=== PATIENT | male | born 1990 | race Caucasian/White ===

== ENCOUNTER 2021-11-14 18:45 | Inpatient (IN) | payer OTHER ==
[~2021-11-14] VITALS: Ht 172.7 cm; Wt 117.5 kg
[2021-11-14] MEDS ORDERED: NALOXONE HCL 1 MG/ML 2ML VIAL ONE (18:59)
[2021-11-14] MEDS ORDERED: NALOXONE HCL 0.4 MG/ML 1ML VIAL IV ONE (19:00)
[2021-11-14] MEDS ORDERED: NALOXONE HCL 1 MG/ML 2ML VIAL IV ONE (19:00)
[2021-11-14 19:15] LABS: BASOPHILS % 0.4 % (0.0-2.0); EOSINOPHILS % 0.3 % (0.0-5.0); HEMATOCRIT. 42.6 % (42.0-52.0); HEMOGLOBIN. 13.8 g/dL (14.0-18.0); LYMPHOCYTES % 11.4 % (20.0-50.0); MEAN CORPUSCULAR HEMOGLOBIN 28.9 pg (28.0-32.0); MEAN CORPUSCULAR VOLUME 89.7 fL (80.0-94.0); MEAN PLATELET VOLUME 7.8 fl (7.4-10.4); MONOCYTES % 6.2 % (2.0-8.0); NEUTROPHILS % 81.7 % (40.0-76.0); PLATELET 412 x1000/uL (130-400); RED BLOOD CELL COUNT 4.76 mill/uL (4.7-6.1); RED CELL DISTRIBUTION WIDTH 14.2 % (11.6-14.6)
[2021-11-14] MEDS ORDERED: WATER IV PRN (19:15)
[2021-11-14] MEDS ORDERED: NALOXONE IV PRN (19:15)
[2021-11-14] MEDS ORDERED: DEXT 5% IV PRN (19:15)
[2021-11-14 19:25] LABS: CHLORIDE 102 mEq/L (98-107)
[2021-11-14 19:35] LABS: ETHANOL BLOOD < 10 mg/dL
[2021-11-14] MEDS ORDERED: MIDAZOLAM HCL 100 MG in DEXT 5% WATER 80 ML IV PRN (19:45)
[2021-11-14] MEDS ORDERED: MIDAZOLAM HCL 100 MG in SODIUM CHLORIDE 0.9% 80 ML IV PRN (19:45)
[2021-11-14] MEDS ORDERED: MIDAZOLAM 100MG/100ML PMX 100 ML IV PRN (19:45)
[2021-11-14] MEDS ORDERED: FENTANYL 2500MCG/250ML PMX 250 ML IV ONE (20:00)
[2021-11-14 20:21] LABS: CLARITY URINE CLEAR (CLEAR); COLOR URINE YELLOW (YELLOW); KETONES URINE NEGATIVE (NEGATIVE); LEUKOCYTE ESTERASE URINE NEGATIVE (NEGATIVE); NITRITE URINE NEGATIVE (NEGATIVE); OCCULT BLOOD URINE TRACE (NEGATIVE); PROTEIN URINE 1+ (NEGATIVE); SPECIFIC GRAVITY URINE 1.016 (1.005-1.030); UROBILINOGEN URINE 0.2 E.U./dL (0.2-1.0)
[2021-11-14 20:30] LABS: *AMPHETAMINES SCREEN URINE NEGATIVE (NEGATIVE); *BARBITURATES SCREEN URINE NEGATIVE (NEGATIVE); *BENZODIAZEPINES SCREEN URINE PRESUMTIVE POSITIVE (NEGATIVE); *COCAINE SCREEN URINE NEGATIVE (NEGATIVE); CANNABINOID URINE SCREEN PRESUMTIVE POSITIVE (NEGATIVE); METHADONE URINE SCREEN NEGATIVE (NEGATIVE); OPIATES URINE SCREEN PRESUMTIVE POSITIVE (NEGATIVE); PHENCYCLIDINE URINE SCREEN NEGATIVE (NEGATIVE)
[2021-11-14] MEDS ORDERED: PROPOFOL 10MG/ML 100ML 100 ML IV PRN (20:30)
[2021-11-14 21:02] LABS: BG BASE EXCESS -3.1 mmol/L (-2.0-2.0); BG CARBOXYHEMOGLOBIN 0.2 % (0.5-1.5); BG FRACTION INSPIRED OXYGEN 100; BG HCO3 ACT 23.5 mmol/L (22.0-26.0); BG METHEMOGLOBIN 0.6 % (0.0-1.5); BG OXYHEMOGLOBIN 94.2 % (94.0-97.0); BG PH 7.308 (7.350-7.450); BG PO2 80.7 mmHg (75.0-100.0); BG SAMPLE SITE RIGHT RADIAL; BG TOTAL HEMOGLOBIN 14.9 g/dL (12.0-18.0); BG VENT MODE VENT - AC
[2021-11-14] MEDS ORDERED: ASPIRIN 300MG SUPP PR NR (21:30)
[2021-11-15] VITALS (73 sets, daily range): BP systolic 113–151; BP diastolic 56–95
[2021-11-15] MEDS ORDERED: FENTANYL 2500MCG/250ML PMX 250 ML IV PRN (05:15)
[2021-11-15] MEDS: PROPOFOL 10MG/ML 100ML 100 ML IV PRN ×6 (07:01→23:46)
[2021-11-15] MEDS: PANTOPRAZOLE SODIUM 40 MG/VIAL IV SCH (08:46)
[2021-11-15 09:18] LABS: BG BASE EXCESS -1.1 mmol/L (-2.0-2.0); BG CARBOXYHEMOGLOBIN 0.6 % (0.5-1.5); BG DEOXYHEMOGLOBIN 3.5 % (0.0-5.0); BG FRACTION INSPIRED OXYGEN 90; BG HCO3 ACT 24.2 mmol/L (22.0-26.0); BG METHEMOGLOBIN 0.4 % (0.0-1.5); BG OXYGEN SATURATION 96.5 % (92.0-98.5); BG OXYHEMOGLOBIN 95.5 % (94.0-97.0); BG PCO2 42.6 mmHg (35.0-45.0); BG PH 7.373 (7.350-7.450); BG PO2 82.7 mmHg (75.0-100.0); BG SAMPLE SITE RIGHT RADIAL; BG TOTAL HEMOGLOBIN 14.2 g/dL (12.0-18.0); BG VENT MODE VENT - AC
[2021-11-15] MEDS: PIPERACILLIN/TAZOBACTAM 3.375 G in DEXTROSE 5% WATER 50 ML IV SCH ×3 (09:46→21:27)
[2021-11-15] MEDS ORDERED: ONDANSETRON HCL 4MG/2ML INJ IV PRN (10:30)
[2021-11-15 10:52] LABS: CHLORIDE 105 mEq/L (98-107)
[2021-11-15 10:57] LABS: BASOPHILS % 0.2 % (0.0-2.0); HEMATOCRIT. 38.7 % (42.0-52.0); LYMPHOCYTES % 11.7 % (20.0-50.0); MEAN CORPUSCULAR VOLUME 86.7 fL (80.0-94.0); MONOCYTES % 5.4 % (2.0-8.0); NEUTROPHILS % 82.7 % (40.0-76.0); PLATELET 311 x1000/uL (130-400); RED BLOOD CELL COUNT 4.46 mill/uL (4.7-6.1); RED CELL DISTRIBUTION WIDTH 14.4 % (11.6-14.6)
[2021-11-15 16:24] LABS: CREATINE KINASE MB FRACTION 14.6 ng/mL (0.5-3.6)
[2021-11-15] MEDS: ENOXAPARIN 40MG/0.4ML SYR SUBCUT SCH (17:18)
[2021-11-15] MEDS: SODIUM CHLORIDE 0.9% 1,000 ML IV SCH (17:30)
[2021-11-15] MEDS: ACETAMINOPHEN 325MG TABLET PO PRN (19:39)
[2021-11-16] VITALS (73 sets, daily range): BP systolic 116–161; BP diastolic 50–98
[2021-11-16] MEDS: SODIUM CHLORIDE 0.9% 1,000 ML IV SCH ×4 (01:06→18:07)
[2021-11-16] MEDS: PROPOFOL 10MG/ML 100ML 100 ML IV PRN ×9 (02:45→22:21)
[2021-11-16] MEDS: PIPERACILLIN/TAZOBACTAM 3.375 G in DEXTROSE 5% WATER 50 ML IV SCH ×3 (05:02→21:00)
[2021-11-16] MEDS: ENOXAPARIN 40MG/0.4ML SYR SUBCUT SCH (05:03)
[2021-11-16 05:42] LABS: INR 1.1; PROTHROMBIN TIME 11.4 sec (9.6-11.0)
[2021-11-16 06:02] LABS: CHLORIDE 103 mEq/L (98-107)
[2021-11-16 06:19] LABS: BASOPHILS % 0.2 % (0.0-2.0); HEMATOCRIT. 39.7 % (42.0-52.0); LYMPHOCYTES % 12.1 % (20.0-50.0); MEAN CORPUSCULAR HEMOGLOBIN 28.9 pg (28.0-32.0); MEAN PLATELET VOLUME 8.4 fl (7.4-10.4); MONOCYTES % 7.5 % (2.0-8.0); NEUTROPHILS % 80.2 % (40.0-76.0); PLATELET 283 x1000/uL (130-400); RED BLOOD CELL COUNT 4.51 mill/uL (4.7-6.1); RED CELL DISTRIBUTION WIDTH 14.2 % (11.6-14.6)
[2021-11-16 06:40] LABS: CREATINE KINASE 8320 IU/L (39-308)
[2021-11-16 08:54] LABS: BG CARBOXYHEMOGLOBIN 0.2 % (0.5-1.5); BG DEOXYHEMOGLOBIN 4.9 % (0.0-5.0); BG FRACTION INSPIRED OXYGEN 90; BG METHEMOGLOBIN 0.4 % (0.0-1.5); BG OXYGEN SATURATION 95.1 % (92.0-98.5); BG OXYHEMOGLOBIN 94.5 % (94.0-97.0); BG PCO2 43.7 mmHg (35.0-45.0); BG PH 7.409 (7.350-7.450); BG PO2 74.9 mmHg (75.0-100.0); BG SAMPLE SITE RIGHT RADIAL; BG TOTAL HEMOGLOBIN 13.8 g/dL (12.0-18.0); BG VENT MODE VENT - AC
[2021-11-16] MEDS: PANTOPRAZOLE SODIUM 40 MG/VIAL IV SCH (08:56)
[2021-11-16] MEDS ORDERED: IPRATROPIUM/ALBUTEROL 0.5-3(2.5)MG/3ML NEB HHN PRN (09:15)
[2021-11-16 12:54] LABS: HEPATITIS B SURFACE ANTIGEN NEGATIVE
[2021-11-16] MEDS: VANCOMYCIN 1,500 MG in DEXT 5% WATER 250 ML IV SCH ×2 (13:04→18:39)
[2021-11-16] MEDS: IPRATROPIUM/ALBUTEROL 0.5-3(2.5)MG/3ML NEB HHN SCH ×2 (14:25→20:23)
[2021-11-16] MEDS: ENOXAPARIN 30MG/0.3ML SYR SUBCUT SCH (20:46)
[2021-11-16] MEDS: MIDAZOLAM HCL 100 MG in SODIUM CHLORIDE 0.9% 80 ML IV PRN (21:28)
[2021-11-16] MEDS: ACETAMINOPHEN 325MG TABLET PO PRN (22:00)
[2021-11-17] VITALS (48 sets, daily range): BP systolic 101–162; BP diastolic 51–105
[2021-11-17] MEDS: SODIUM CHLORIDE 0.9% 1,000 ML IV SCH ×5 (00:09→21:35)
[2021-11-17] MEDS: VANCOMYCIN 1,500 MG in DEXT 5% WATER 250 ML IV SCH ×2 (01:01→10:10)
[2021-11-17] MEDS: PROPOFOL 10MG/ML 100ML 100 ML IV PRN ×7 (01:16→22:04)
[2021-11-17] MEDS: IPRATROPIUM/ALBUTEROL 0.5-3(2.5)MG/3ML NEB HHN SCH ×3 (01:40→20:39)
[2021-11-17] MEDS: MIDAZOLAM HCL 100 MG in SODIUM CHLORIDE 0.9% 80 ML IV PRN (05:10)
[2021-11-17] MEDS: PIPERACILLIN/TAZOBACTAM 3.375 G in DEXTROSE 5% WATER 50 ML IV SCH ×3 (05:10→21:44)
[2021-11-17 06:06] LABS: BASOPHILS % 0.3 % (0.0-2.0); HEMATOCRIT. 36.1 % (42.0-52.0); HEMOGLOBIN. 12.3 g/dL (14.0-18.0); LYMPHOCYTES % 10.1 % (20.0-50.0); MEAN CORPUSCULAR HEMOGLOBIN 29.2 pg (28.0-32.0); MEAN CORPUSCULAR VOLUME 86.1 fL (80.0-94.0); MEAN PLATELET VOLUME 8.5 fl (7.4-10.4); NEUTROPHILS % 83.6 % (40.0-76.0); PLATELET 271 x1000/uL (130-400); RED CELL DISTRIBUTION WIDTH 14.2 % (11.6-14.6)
[2021-11-17 06:45] LABS: CHLORIDE 104 mEq/L (98-107)
[2021-11-17 07:24] LABS: T4 FREE 1.18 ng/dL (0.76-1.46)
[2021-11-17 08:10] LABS: HIV SCREEN 4G Non Reactive (Non Reactive)
[2021-11-17 08:17] LABS: CREATINE KINASE 8510 IU/L (39-308)
[2021-11-17 08:56] LABS: BG BASE EXCESS -0.1 mmol/L (-2.0-2.0); BG CARBOXYHEMOGLOBIN 0.3 % (0.5-1.5); BG FRACTION INSPIRED OXYGEN 80; BG HCO3 ACT 24.6 mmol/L (22.0-26.0); BG METHEMOGLOBIN 0.5 % (0.0-1.5); BG OXYHEMOGLOBIN 98.2 % (94.0-97.0); BG PCO2 40.4 mmHg (35.0-45.0); BG PH 7.403 (7.350-7.450); BG PO2 167.2 mmHg (75.0-100.0); BG SAMPLE SITE LEFT RADIAL; BG TOTAL HEMOGLOBIN 12.6 g/dL (12.0-18.0); BG VENT MODE VENT - AC
[2021-11-17] MEDS: PANTOPRAZOLE SODIUM 40 MG/VIAL IV SCH (10:09)
[2021-11-17] MEDS: ENOXAPARIN 30MG/0.3ML SYR SUBCUT SCH ×2 (10:09→20:47)
[2021-11-17] MEDS ORDERED: VANCOMYCIN 1,750 MG in DEXT 5% WATER 500 ML IV SCH (17:00)
[2021-11-17] MEDS: AZITHROMYCIN 500 MG in DEXT 5% WATER 250 ML IV SCH (20:47)
[2021-11-18] VITALS (87 sets, daily range): BP systolic 98–187; BP diastolic 44–91
[2021-11-18] MEDS: PROPOFOL 10MG/ML 100ML 100 ML IV PRN ×7 (01:50→22:41)
[2021-11-18] MEDS: IPRATROPIUM/ALBUTEROL 0.5-3(2.5)MG/3ML NEB HHN SCH ×4 (02:27→20:49)
[2021-11-18] MEDS: SODIUM CHLORIDE 0.9% 1,000 ML IV SCH ×3 (04:52→21:43)
[2021-11-18] MEDS: PIPERACILLIN/TAZOBACTAM 3.375 G in DEXTROSE 5% WATER 50 ML IV SCH ×3 (05:00→21:48)
[2021-11-18 05:45] LABS: BASOPHILS % 0.4 % (0.0-2.0); HEMATOCRIT. 32.7 % (42.0-52.0); LYMPHOCYTES % 12.9 % (20.0-50.0); MEAN CORPUSCULAR HEMOGLOBIN 29.3 pg (28.0-32.0); MEAN CORPUSCULAR VOLUME 87.2 fL (80.0-94.0); MEAN PLATELET VOLUME 8.3 fl (7.4-10.4); MONOCYTES % 6.6 % (2.0-8.0); NEUTROPHILS % 79.1 % (40.0-76.0); PLATELET 265 x1000/uL (130-400); RED BLOOD CELL COUNT 3.75 mill/uL (4.7-6.1); RED CELL DISTRIBUTION WIDTH 13.6 % (11.6-14.6)
[2021-11-18 05:50] LABS: CHLORIDE 106 mEq/L (98-107)
[2021-11-18 06:08] LABS: CREATINE KINASE 3513 IU/L (39-308)
[2021-11-18] MEDS: PANTOPRAZOLE SODIUM 40 MG/VIAL IV SCH (09:19)
[2021-11-18] MEDS: RISPERIDONE 0.5MG TABLET PO SCH ×2 (09:19→18:18)
[2021-11-18 09:21] LABS: BG BASE EXCESS 1.7 mmol/L (-2.0-2.0); BG CARBOXYHEMOGLOBIN 0.3 % (0.5-1.5); BG FRACTION INSPIRED OXYGEN 70; BG HCO3 ACT 26.4 mmol/L (22.0-26.0); BG METHEMOGLOBIN 0.2 % (0.0-1.5); BG OXYHEMOGLOBIN 96.5 % (94.0-97.0); BG PH 7.417 (7.350-7.450); BG PO2 92.1 mmHg (75.0-100.0); BG SAMPLE SITE LEFT RADIAL; BG TOTAL HEMOGLOBIN 12.4 g/dL (12.0-18.0); BG VENT MODE VENT - AC
[2021-11-18] MEDS: ENOXAPARIN 30MG/0.3ML SYR SUBCUT SCH ×2 (10:25→21:44)
[2021-11-18] MEDS ORDERED: SODIUM CHLORIDE 0.9% 1,000 ML IV SCH (11:45)
[2021-11-18] MEDS ORDERED: PROPOFOL 10MG/ML 100ML 100 ML IV PRN (11:45)
[2021-11-18] MEDS: MIDAZOLAM HCL 100 MG in SODIUM CHLORIDE 0.9% 80 ML IV PRN (13:59)
[2021-11-18 16:00] LABS: CHLORIDE 105 mEq/L (98-107)
[2021-11-18] MEDS: AZITHROMYCIN 500 MG in DEXT 5% WATER 250 ML IV SCH (18:15)
[2021-11-19] VITALS (82 sets, daily range): BP systolic 92–162; BP diastolic 50–97
[2021-11-19] MEDS: IPRATROPIUM/ALBUTEROL 0.5-3(2.5)MG/3ML NEB HHN SCH ×4 (01:11→20:36)
[2021-11-19] MEDS: PROPOFOL 10MG/ML 100ML 100 ML IV PRN ×8 (01:30→21:30)
[2021-11-19] MEDS: MIDAZOLAM HCL 100 MG in SODIUM CHLORIDE 0.9% 80 ML IV PRN ×2 (04:06→14:25)
[2021-11-19] MEDS: PIPERACILLIN/TAZOBACTAM 3.375 G in DEXTROSE 5% WATER 50 ML IV SCH ×3 (05:20→21:30)
[2021-11-19] MEDS: SODIUM CHLORIDE 0.9% 1,000 ML IV SCH ×3 (05:20→21:57)
[2021-11-19 06:03] LABS: BASOPHILS % 0.5 % (0.0-2.0); EOSINOPHILS % 3.8 % (0.0-5.0); HEMOGLOBIN. 10.7 g/dL (14.0-18.0); LYMPHOCYTES % 26.6 % (20.0-50.0); MEAN CORPUSCULAR HEMOGLOBIN 29.8 pg (28.0-32.0); MEAN CORPUSCULAR VOLUME 86.5 fL (80.0-94.0); MEAN PLATELET VOLUME 7.9 fl (7.4-10.4); MONOCYTES % 8.4 % (2.0-8.0); NEUTROPHILS % 60.7 % (40.0-76.0); PLATELET 283 x1000/uL (130-400); RED BLOOD CELL COUNT 3.59 mill/uL (4.7-6.1)
[2021-11-19 06:22] LABS: CHLORIDE 106 mEq/L (98-107)
[2021-11-19] MEDS ORDERED: LIDOCAINE HCL 1% 30ML VIAL (10MG/ML) ONE (07:26)
[2021-11-19 08:11] LABS: BG BASE EXCESS 1.3 mmol/L (-2.0-2.0); BG CARBOXYHEMOGLOBIN 0.3 % (0.5-1.5); BG DEOXYHEMOGLOBIN 4.7 % (0.0-5.0); BG FRACTION INSPIRED OXYGEN 100; BG HCO3 ACT 25.4 mmol/L (22.0-26.0); BG METHEMOGLOBIN 0.3 % (0.0-1.5); BG OXYGEN SATURATION 95.3 % (92.0-98.5); BG OXYHEMOGLOBIN 94.7 % (94.0-97.0); BG PCO2 38.4 mmHg (35.0-45.0); BG PH 7.439 (7.350-7.450); BG PO2 77.8 mmHg (75.0-100.0); BG SAMPLE SITE RIGHT RADIAL; BG TOTAL HEMOGLOBIN 11.7 g/dL (12.0-18.0); BG VENT MODE VENT - AC
[2021-11-19] MEDS: ENOXAPARIN 30MG/0.3ML SYR SUBCUT SCH (09:18)
[2021-11-19] MEDS: PANTOPRAZOLE SODIUM 40 MG/VIAL IV SCH (09:19)
[2021-11-19] MEDS: RISPERIDONE 0.5MG TABLET PO SCH ×2 (09:19→18:30)
[2021-11-19] MEDS: METHYLPREDNISOLONE SOD SUCC 40 MG/ML VIAL IV SCH ×2 (10:38→18:29)
[2021-11-19] MEDS ORDERED: POTASSIUM CHLORIDE 20MEQ/PACKET PO NR (11:00)
[2021-11-19 11:20] LABS: CREATINE KINASE 1280 IU/L (39-308)
[2021-11-19] MEDS: DOCUSATE SODIUM SUGAR FREE 100MG/10ML UDC NG SCH (13:10)
[2021-11-19] MEDS: ENOXAPARIN 120MG/0.8ML SYR SUBCUT SCH (18:30)
[2021-11-19] MEDS: FENTANYL 2500MCG/250ML PMX 250 ML IV PRN (18:32)
[2021-11-19] MEDS: AZITHROMYCIN 500 MG in DEXT 5% WATER 250 ML IV SCH (18:45)
[2021-11-19] MEDS ORDERED: LACTULOSE 20G/30ML UDC PO NR (19:15)
[2021-11-20] VITALS (81 sets, daily range): BP systolic 109–167; BP diastolic 51–94
[2021-11-20] MEDS: PROPOFOL 10MG/ML 100ML 100 ML IV PRN ×8 (00:16→21:02)
[2021-11-20] MEDS: MIDAZOLAM HCL 100 MG in SODIUM CHLORIDE 0.9% 80 ML IV PRN ×3 (00:17→15:03)
[2021-11-20] MEDS: IPRATROPIUM/ALBUTEROL 0.5-3(2.5)MG/3ML NEB HHN SCH ×4 (02:08→20:06)
[2021-11-20] MEDS: METHYLPREDNISOLONE SOD SUCC 40 MG/ML VIAL IV SCH ×3 (03:53→17:55)
[2021-11-20] MEDS: PIPERACILLIN/TAZOBACTAM 3.375 G in DEXTROSE 5% WATER 50 ML IV SCH ×2 (05:17→13:19)
[2021-11-20] MEDS: SODIUM CHLORIDE 0.9% 1,000 ML IV SCH ×2 (05:18→12:20)
[2021-11-20 06:03] LABS: HEMATOCRIT 30.9 % (42.0-52.0); HEMOGLOBIN 10.5 g/dL (14.0-18.0); MEAN CORPUSCULAR HEMOGLOBIN 29.3 pg (28.0-32.0); MEAN CORPUSCULAR VOLUME 86.4 fL (80.0-94.0); PLATELET 317 x1000/uL (130-400); RED BLOOD CELL COUNT 3.58 mill/uL (4.7-6.1); RED CELL DISTRIBUTION WIDTH 13.9 % (11.6-14.6)
[2021-11-20 07:19] LABS: CHLORIDE 110 mEq/L (98-107)
[2021-11-20 07:29] LABS: PHOSPHORUS 3.2 mg/dL (2.5-4.9)
[2021-11-20] MEDS: DOCUSATE SODIUM SUGAR FREE 100MG/10ML UDC NG SCH (08:07)
[2021-11-20] MEDS: RISPERIDONE 0.5MG TABLET PO SCH ×2 (08:07→17:55)
[2021-11-20] MEDS: PANTOPRAZOLE SODIUM 40 MG/VIAL IV SCH (08:07)
[2021-11-20] MEDS: ENOXAPARIN 120MG/0.8ML SYR SUBCUT SCH (08:08)
[2021-11-20 08:42] LABS: BG BASE EXCESS 4.3 mmol/L (-2.0-2.0); BG CARBOXYHEMOGLOBIN 0.3 % (0.5-1.5); BG DEOXYHEMOGLOBIN 3.1 % (0.0-5.0); BG FRACTION INSPIRED OXYGEN 100; BG HCO3 ACT 30.2 mmol/L (22.0-26.0); BG METHEMOGLOBIN 0.4 % (0.0-1.5); BG OXYGEN SATURATION 96.9 % (92.0-98.5); BG OXYHEMOGLOBIN 96.2 % (94.0-97.0); BG PO2 94.9 mmHg (75.0-100.0); BG SAMPLE SITE RIGHT RADIAL; BG TOTAL HEMOGLOBIN 11.1 g/dL (12.0-18.0); BG VENT MODE VENT - AC
[2021-11-20] MEDS: FENTANYL 2500MCG/250ML PMX 250 ML IV PRN (12:21)
[2021-11-20] MEDS: AMLODIPINE 10MG TABLET PO SCH (15:49)
[2021-11-20] MEDS: ACETYLCYSTEINE 100MG/ML 10% VIAL 4ML INH SCH (16:29)
[2021-11-20] MEDS: AZITHROMYCIN 500 MG in DEXT 5% WATER 250 ML IV SCH (17:55)
[2021-11-20] MEDS: ENOXAPARIN 150MG/ML SYR SUBCUT SCH (20:53)
[2021-11-21] VITALS (82 sets, daily range): BP systolic 114–174; BP diastolic 61–98
[2021-11-21] MEDS: PROPOFOL 10MG/ML 100ML 100 ML IV PRN ×8 (00:07→21:50)
[2021-11-21] MEDS: IPRATROPIUM/ALBUTEROL 0.5-3(2.5)MG/3ML NEB HHN SCH ×6 (00:30→20:55)
[2021-11-21] MEDS: ACETYLCYSTEINE 100MG/ML 10% VIAL 4ML INH SCH ×2 (00:30→09:01)
[2021-11-21] MEDS: MIDAZOLAM HCL 100 MG in SODIUM CHLORIDE 0.9% 80 ML IV PRN ×3 (01:23→17:03)
[2021-11-21] MEDS: SODIUM CHLORIDE 0.9% 1,000 ML IV SCH (01:24)
[2021-11-21] MEDS: METHYLPREDNISOLONE SOD SUCC 40 MG/ML VIAL IV SCH ×3 (01:36→19:20)
[2021-11-21 04:33] LABS: BASOPHILS % 0.2 % (0.0-2.0); HEMATOCRIT. 31.5 % (42.0-52.0); HEMOGLOBIN. 10.7 g/dL (14.0-18.0); LYMPHOCYTES % 7.7 % (20.0-50.0); MEAN CORPUSCULAR HEMOGLOBIN 29.7 pg (28.0-32.0); MEAN CORPUSCULAR VOLUME 87.5 fL (80.0-94.0); MEAN PLATELET VOLUME 7.8 fl (7.4-10.4); MONOCYTES % 3.6 % (2.0-8.0); NEUTROPHILS % 88.5 % (40.0-76.0); PLATELET 368 x1000/uL (130-400)
[2021-11-21 05:08] LABS: CHLORIDE 105 mEq/L (98-107); CREATINE KINASE 764 IU/L (39-308)
[2021-11-21 07:32] LABS: BG BASE EXCESS 2.9 mmol/L (-2.0-2.0); BG CARBOXYHEMOGLOBIN 0.3 % (0.5-1.5); BG DEOXYHEMOGLOBIN 4.8 % (0.0-5.0); BG HCO3 ACT 28.6 mmol/L (22.0-26.0); BG METHEMOGLOBIN 0.3 % (0.0-1.5); BG OXYGEN SATURATION 95.2 % (92.0-98.5); BG OXYHEMOGLOBIN 94.6 % (94.0-97.0); BG PH 7.384 (7.350-7.450); BG PO2 80.3 mmHg (75.0-100.0); BG SAMPLE SITE RIGHT RADIAL; BG TOTAL HEMOGLOBIN 11.1 g/dL (12.0-18.0); BG VENT MODE VENT - AC
[2021-11-21] MEDS: RISPERIDONE 0.5MG TABLET PO SCH ×2 (08:39→17:00)
[2021-11-21] MEDS: DOCUSATE SODIUM SUGAR FREE 100MG/10ML UDC NG SCH (08:39)
[2021-11-21] MEDS: AMLODIPINE 10MG TABLET PO SCH (08:40)
[2021-11-21] MEDS: ENOXAPARIN 150MG/ML SYR SUBCUT SCH (08:40)
[2021-11-21] MEDS ORDERED: BISACODYL 10MG SUPP PR SCH (08:45)
[2021-11-21] MEDS ORDERED: BISACODYL 10MG SUPP PR PRN (08:45)
[2021-11-21] MEDS: ACETAMINOPHEN 325MG TABLET PO PRN (08:56)
[2021-11-21] MEDS ORDERED: OXYMETAZOLINE HCL NASAL SPRAY 15ML BOTHNSTRLS PRN ×2 (12:00→13:45)
[2021-11-21] MEDS: PANTOPRAZOLE SODIUM 40 MG/VIAL IV SCH (12:04)
[2021-11-21] MEDS ORDERED: PROTAMINE SULFATE 10MG/ML VIAL 25ML IV SCH (15:00)
[2021-11-21] MEDS ORDERED: PROTAMINE SULFATE 10MG/ML VIAL 5ML IV SCH (15:00)
[2021-11-21 15:40] LABS: HEMATOCRIT 33.1 % (42.0-52.0); HEMOGLOBIN 10.9 g/dL (14.0-18.0); MEAN CORPUSCULAR HEMOGLOBIN 28.9 pg (28.0-32.0); MEAN CORPUSCULAR VOLUME 87.4 fL (80.0-94.0); PLATELET 367 x1000/uL (130-400); RED BLOOD CELL COUNT 3.79 mill/uL (4.7-6.1); RED CELL DISTRIBUTION WIDTH 14.3 % (11.6-14.6)
[2021-11-21] MEDS: DILTIAZEM HCL 60MG TABLET PO SCH ×2 (16:00→21:06)
[2021-11-21] MEDS ORDERED: PROPOFOL 10MG/ML 100ML 100 ML IV PRN (17:00)
[2021-11-21] MEDS: AZITHROMYCIN 500 MG in DEXT 5% WATER 250 ML IV SCH (19:20)
[2021-11-21 21:39] LABS: HEMOGLOBIN 9.7 g/dL (14.0-18.0); MEAN CORPUSCULAR HEMOGLOBIN 30.1 pg (28.0-32.0); MEAN CORPUSCULAR VOLUME 87.2 fL (80.0-94.0); PLATELET 359 x1000/uL (130-400); RED BLOOD CELL COUNT 3.21 mill/uL (4.7-6.1); RED CELL DISTRIBUTION WIDTH 14.1 % (11.6-14.6)
[2021-11-22] VITALS (95 sets, daily range): BP systolic 102–166; BP diastolic 46–127
[2021-11-22] MEDS: ACETYLCYSTEINE 100MG/ML 10% VIAL 4ML INH SCH ×3 (00:08→16:29)
[2021-11-22] MEDS: IPRATROPIUM/ALBUTEROL 0.5-3(2.5)MG/3ML NEB HHN SCH ×6 (00:08→20:31)
[2021-11-22] MEDS: MIDAZOLAM HCL 100 MG in SODIUM CHLORIDE 0.9% 80 ML IV PRN ×3 (01:01→20:12)
[2021-11-22] MEDS: METHYLPREDNISOLONE SOD SUCC 40 MG/ML VIAL IV SCH ×3 (01:58→20:14)
[2021-11-22] MEDS: PROPOFOL 10MG/ML 100ML 100 ML IV PRN ×6 (02:01→20:12)
[2021-11-22] MEDS: FENTANYL 2500MCG/250ML PMX 250 ML IV PRN (02:02)
[2021-11-22] MEDS: DILTIAZEM HCL 60MG TABLET PO SCH ×3 (05:34→22:00)
[2021-11-22 05:43] LABS: BASOPHILS % 0.1 % (0.0-2.0); HEMOGLOBIN. 9.2 g/dL (14.0-18.0); LYMPHOCYTES % 11.2 % (20.0-50.0); MEAN CORPUSCULAR HEMOGLOBIN 29.6 pg (28.0-32.0); MEAN CORPUSCULAR VOLUME 86.9 fL (80.0-94.0); MEAN PLATELET VOLUME 7.7 fl (7.4-10.4); MONOCYTES % 6.5 % (2.0-8.0); NEUTROPHILS % 82.2 % (40.0-76.0); PLATELET 363 x1000/uL (130-400); RED BLOOD CELL COUNT 3.11 mill/uL (4.7-6.1); RED CELL DISTRIBUTION WIDTH 13.6 % (11.6-14.6)
[2021-11-22 07:10] LABS: CHLORIDE 104 mEq/L (98-107)
[2021-11-22] MEDS: DOCUSATE SODIUM SUGAR FREE 100MG/10ML UDC NG SCH ×2 (09:00→09:07)
[2021-11-22] MEDS: RISPERIDONE 0.5MG TABLET PO SCH ×3 (09:00→16:06)
[2021-11-22] MEDS: PANTOPRAZOLE SODIUM 40 MG/VIAL IV SCH (09:06)
[2021-11-22 09:19] LABS: BG CARBOXYHEMOGLOBIN 0.3 % (0.5-1.5); BG DEOXYHEMOGLOBIN 3.3 % (0.0-5.0); BG FRACTION INSPIRED OXYGEN 50; BG HCO3 ACT 33.7 mmol/L (22.0-26.0); BG METHEMOGLOBIN 0.3 % (0.0-1.5); BG OXYGEN SATURATION 96.7 % (92.0-98.5); BG OXYHEMOGLOBIN 96.1 % (94.0-97.0); BG PCO2 54.2 mmHg (35.0-45.0); BG PH 7.412 (7.350-7.450); BG PO2 90.6 mmHg (75.0-100.0); BG SAMPLE SITE RIGHT RADIAL; BG TOTAL HEMOGLOBIN 9.6 g/dL (12.0-18.0); BG VENT MODE VENT - AC
[2021-11-22] MEDS: FENTANYL CITRATE/PF 50MCG/ML 2ML VIAL IV PRN (16:09)
[2021-11-22] MEDS: AZITHROMYCIN 500 MG in DEXT 5% WATER 250 ML IV SCH ×2 (17:57→18:00)
[2021-11-23] VITALS (86 sets, daily range): BP systolic 97–191; BP diastolic 46–109
[2021-11-23] MEDS: IPRATROPIUM/ALBUTEROL 0.5-3(2.5)MG/3ML NEB HHN SCH ×6 (00:45→20:36)
[2021-11-23] MEDS: ACETYLCYSTEINE 100MG/ML 10% VIAL 4ML INH SCH ×3 (00:46→15:42)
[2021-11-23] MEDS: PROPOFOL 10MG/ML 100ML 100 ML IV PRN ×8 (01:15→22:11)
[2021-11-23] MEDS: FENTANYL 2500MCG/250ML PMX 250 ML IV PRN ×2 (02:42→23:49)
[2021-11-23] MEDS: DILTIAZEM HCL 60MG TABLET PO SCH (05:24)
[2021-11-23] MEDS: MIDAZOLAM HCL 100 MG in SODIUM CHLORIDE 0.9% 80 ML IV PRN ×2 (05:30→14:33)
[2021-11-23 05:53] LABS: HEMATOCRIT. 24.2 % (42.0-52.0); HEMOGLOBIN. 8.2 g/dL (14.0-18.0); MEAN CORPUSCULAR HEMOGLOBIN 29.5 pg (28.0-32.0); MEAN CORPUSCULAR VOLUME 86.9 fL (80.0-94.0); PLATELET 361 x1000/uL (130-400); RED BLOOD CELL COUNT 2.79 mill/uL (4.7-6.1); RED CELL DISTRIBUTION WIDTH 13.7 % (11.6-14.6)
[2021-11-23 06:40] LABS: CHLORIDE 103 mEq/L (98-107)
[2021-11-23 07:39] LABS: PLATELET ESTIMATE NORMAL
[2021-11-23] MEDS: RISPERIDONE 0.5MG TABLET PO SCH ×2 (08:12→16:18)
[2021-11-23] MEDS: DOCUSATE SODIUM SUGAR FREE 100MG/10ML UDC NG SCH (08:12)
[2021-11-23] MEDS: PANTOPRAZOLE SODIUM 40 MG/VIAL IV SCH (08:36)
[2021-11-23] MEDS: METHYLPREDNISOLONE SOD SUCC 40 MG/ML VIAL IV SCH ×2 (08:36→21:09)
[2021-11-23 09:06] LABS: BG BASE EXCESS 6.8 mmol/L (-2.0-2.0); BG CARBOXYHEMOGLOBIN 0.3 % (0.5-1.5); BG DEOXYHEMOGLOBIN 14.5 % (0.0-5.0); BG FRACTION INSPIRED OXYGEN 50; BG HCO3 ACT 31.6 mmol/L (22.0-26.0); BG METHEMOGLOBIN 0.4 % (0.0-1.5); BG OXYGEN SATURATION 85.4 % (92.0-98.5); BG OXYHEMOGLOBIN 84.8 % (94.0-97.0); BG PCO2 46.5 mmHg (35.0-45.0); BG PO2 50.1 mmHg (75.0-100.0); BG SAMPLE SITE RIGHT RADIAL; BG VENT MODE VENT - AC
[2021-11-23] MEDS ORDERED: FUROSEMIDE 20MG/2ML VIAL IVP NR (10:15)
[2021-11-23] MEDS: DILTIAZEM HCL 5MG/ML 5ML VIAL IV PRN (12:18)
[2021-11-23] MEDS ORDERED: DILTIAZEM HCL 60MG TABLET PO SCH (14:00)
[2021-11-23] MEDS: HALOPERIDOL LACTATE 5MG/ML VIAL IM PRN (19:24)
[2021-11-23] MEDS: DILTIAZEM HCL 90MG TABLET PO SCH (21:09)
[2021-11-24] VITALS (86 sets, daily range): BP systolic 93–200; BP diastolic 50–118
[2021-11-24] MEDS: DILTIAZEM HCL 5MG/ML 5ML VIAL IV PRN (00:15)
[2021-11-24] MEDS: ACETYLCYSTEINE 100MG/ML 10% VIAL 4ML INH SCH ×3 (00:26→16:20)
[2021-11-24] MEDS: IPRATROPIUM/ALBUTEROL 0.5-3(2.5)MG/3ML NEB HHN SCH ×5 (00:26→20:38)
[2021-11-24] MEDS: PROPOFOL 10MG/ML 100ML 100 ML IV PRN ×9 (00:43→23:54)
[2021-11-24] MEDS: MIDAZOLAM HCL 100 MG in SODIUM CHLORIDE 0.9% 80 ML IV PRN ×2 (02:01→13:16)
[2021-11-24] MEDS: HALOPERIDOL LACTATE 5MG/ML VIAL IM PRN ×3 (03:36→20:01)
[2021-11-24] MEDS: DILTIAZEM HCL 90MG TABLET PO SCH ×3 (06:00→17:54)
[2021-11-24 06:01] LABS: BASOPHILS % 0.2 % (0.0-2.0); HEMATOCRIT. 25.9 % (42.0-52.0); HEMOGLOBIN. 8.9 g/dL (14.0-18.0); LYMPHOCYTES % 13.3 % (20.0-50.0); MEAN CORPUSCULAR HEMOGLOBIN 29.4 pg (28.0-32.0); MEAN CORPUSCULAR VOLUME 85.5 fL (80.0-94.0); MEAN PLATELET VOLUME 7.5 fl (7.4-10.4); MONOCYTES % 7.2 % (2.0-8.0); NEUTROPHILS % 79.3 % (40.0-76.0); PLATELET 420 x1000/uL (130-400); RED BLOOD CELL COUNT 3.03 mill/uL (4.7-6.1); RED CELL DISTRIBUTION WIDTH 13.6 % (11.6-14.6)
[2021-11-24 07:13] LABS: CHLORIDE 105 mEq/L (98-107)
[2021-11-24 08:37] LABS: BG BASE EXCESS 1.5 mmol/L (-2.0-2.0); BG CARBOXYHEMOGLOBIN 0.3 % (0.5-1.5); BG DEOXYHEMOGLOBIN 5.2 % (0.0-5.0); BG HCO3 ACT 26.2 mmol/L (22.0-26.0); BG METHEMOGLOBIN 0.3 % (0.0-1.5); BG OXYGEN SATURATION 94.8 % (92.0-98.5); BG OXYHEMOGLOBIN 94.2 % (94.0-97.0); BG PCO2 41.7 mmHg (35.0-45.0); BG PH 7.416 (7.350-7.450); BG SAMPLE SITE RIGHT BRACHIAL; BG TOTAL HEMOGLOBIN 11.2 g/dL (12.0-18.0); BG VENT MODE VENT - AC
[2021-11-24] MEDS: RISPERIDONE 0.5MG TABLET PO SCH ×2 (09:00→17:56)
[2021-11-24] MEDS: DOCUSATE SODIUM SUGAR FREE 100MG/10ML UDC NG SCH (09:00)
[2021-11-24] MEDS: FENTANYL CITRATE/PF 50MCG/ML 2ML VIAL IV PRN (09:19)
[2021-11-24] MEDS: METHYLPREDNISOLONE SOD SUCC 40 MG/ML VIAL IV SCH (10:12)
[2021-11-24] MEDS: FENTANYL 2500MCG/250ML PMX 250 ML IV PRN (13:15)
[2021-11-24] MEDS: PANTOPRAZOLE SODIUM 40 MG/VIAL IV SCH (13:16)
[2021-11-24] MEDS ORDERED: NA PHOS,M-B/NA PHOS,DI-BA ENEMA 118ML PR NR (15:15)
[2021-11-24] MEDS ORDERED: PROPOFOL 10MG/ML 100ML 100 ML IV PRN (18:30)
[2021-11-24] MEDS: CHLORDIAZEPOXIDE 25MG CAPSULE PO SCH (21:32)
[2021-11-25] VITALS (91 sets, daily range): BP systolic 96–213; BP diastolic 28–132
[2021-11-25] MEDS: MIDAZOLAM HCL 100 MG in SODIUM CHLORIDE 0.9% 80 ML IV PRN (00:35)
[2021-11-25] MEDS: IPRATROPIUM/ALBUTEROL 0.5-3(2.5)MG/3ML NEB HHN SCH ×5 (00:46→20:20)
[2021-11-25] MEDS: PROPOFOL 10MG/ML 100ML 100 ML IV PRN ×6 (02:14→21:16)
[2021-11-25] MEDS: ACETYLCYSTEINE 100MG/ML 10% VIAL 4ML INH SCH ×2 (03:59→16:30)
[2021-11-25 05:04] LABS: BASOPHILS % 0.1 % (0.0-2.0); EOSINOPHILS % 0.2 % (0.0-5.0); HEMOGLOBIN. 10.1 g/dL (14.0-18.0); LYMPHOCYTES % 16.4 % (20.0-50.0); MEAN CORPUSCULAR HEMOGLOBIN 30.3 pg (28.0-32.0); MEAN CORPUSCULAR VOLUME 87.1 fL (80.0-94.0); MEAN PLATELET VOLUME 7.4 fl (7.4-10.4); NEUTROPHILS % 78.3 % (40.0-76.0); PLATELET 430 x1000/uL (130-400); RED BLOOD CELL COUNT 3.33 mill/uL (4.7-6.1); RED CELL DISTRIBUTION WIDTH 13.9 % (11.6-14.6)
[2021-11-25 05:18] LABS: CHLORIDE 103 mEq/L (98-107)
[2021-11-25] MEDS: CHLORDIAZEPOXIDE 25MG CAPSULE PO SCH ×3 (05:52→21:17)
[2021-11-25] MEDS: DILTIAZEM HCL 90MG TABLET PO SCH ×3 (05:52→21:17)
[2021-11-25] MEDS: FENTANYL 2500MCG/250ML PMX 250 ML IV PRN ×2 (05:53→20:09)
[2021-11-25] MEDS: HALOPERIDOL LACTATE 5MG/ML VIAL IM PRN ×2 (06:04→15:44)
[2021-11-25] MEDS: LACTULOSE 20G/30ML UDC PO PRN ×2 (06:04→20:20)
[2021-11-25] MEDS ORDERED: POTASSIUM CHLORIDE 20MEQ/PACKET NG SCH (08:00)
[2021-11-25] MEDS: METHYLPREDNISOLONE SOD SUCC 40 MG/ML VIAL IV SCH (08:40)
[2021-11-25] MEDS: DOCUSATE SODIUM SUGAR FREE 100MG/10ML UDC NG SCH (08:40)
[2021-11-25] MEDS: PANTOPRAZOLE SODIUM 40 MG/VIAL IV SCH (08:40)
[2021-11-25] MEDS: RISPERIDONE 0.5MG TABLET PO SCH ×2 (08:41→18:06)
[2021-11-25 09:38] LABS: BG BASE EXCESS 3.7 mmol/L (-2.0-2.0); BG CARBOXYHEMOGLOBIN 0.5 % (0.5-1.5); BG DEOXYHEMOGLOBIN 12.3 % (0.0-5.0); BG FRACTION INSPIRED OXYGEN 100; BG HCO3 ACT 27.3 mmol/L (22.0-26.0); BG METHEMOGLOBIN 0.3 % (0.0-1.5); BG OXYGEN SATURATION 87.6 % (92.0-98.5); BG OXYHEMOGLOBIN 86.9 % (94.0-97.0); BG PCO2 37.4 mmHg (35.0-45.0); BG PH 7.481 (7.350-7.450); BG PO2 50.2 mmHg (75.0-100.0); BG SAMPLE SITE RIGHT BRACHIAL; BG TOTAL HEMOGLOBIN 10.4 g/dL (12.0-18.0); BG VENT MODE VENT - AC
[2021-11-25] MEDS ORDERED: SODIUM CHLORIDE 10% FOR INH 15ML VIAL NEB INH SCH (10:30)
[2021-11-25 11:40] LABS: CLARITY URINE CLEAR (CLEAR); COLOR URINE YELLOW (YELLOW); KETONES URINE 2+ (NEGATIVE); LEUKOCYTE ESTERASE URINE NEGATIVE (NEGATIVE); NITRITE URINE NEGATIVE (NEGATIVE); OCCULT BLOOD URINE 2+ (NEGATIVE); PROTEIN URINE 1+ (NEGATIVE); SPECIFIC GRAVITY URINE 1.025 (1.005-1.030)
[2021-11-25] MEDS: DEXMEDETOMIDINE 400 MCG/100 ML 100 ML IV PRN ×5 (12:00→23:10)
[2021-11-26] VITALS (95 sets, daily range): BP systolic 105–180; BP diastolic 52–137
[2021-11-26] MEDS: IPRATROPIUM/ALBUTEROL 0.5-3(2.5)MG/3ML NEB HHN SCH ×6 (00:03→20:44)
[2021-11-26] MEDS: ACETYLCYSTEINE 100MG/ML 10% VIAL 4ML INH SCH (00:03)
[2021-11-26] MEDS: HALOPERIDOL LACTATE 5MG/ML VIAL IM PRN (00:07)
[2021-11-26] MEDS: PROPOFOL 10MG/ML 100ML 100 ML IV PRN ×7 (01:04→21:29)
[2021-11-26] MEDS: DEXMEDETOMIDINE 400 MCG/100 ML 100 ML IV PRN ×3 (02:00→09:07)
[2021-11-26] MEDS: DILTIAZEM HCL 90MG TABLET PO SCH ×3 (05:27→21:27)
[2021-11-26] MEDS: CHLORDIAZEPOXIDE 25MG CAPSULE PO SCH ×3 (05:28→21:27)
[2021-11-26 08:26] LABS: HEMATOCRIT 24.9 % (42.0-52.0); HEMOGLOBIN 8.4 g/dL (14.0-18.0); MEAN CORPUSCULAR HEMOGLOBIN 29.5 pg (28.0-32.0); MEAN CORPUSCULAR VOLUME 87.2 fL (80.0-94.0); PLATELET 407 x1000/uL (130-400); RED BLOOD CELL COUNT 2.85 mill/uL (4.7-6.1); RED CELL DISTRIBUTION WIDTH 13.6 % (11.6-14.6)
[2021-11-26 08:35] LABS: CHLORIDE 100 mEq/L (98-107)
[2021-11-26] MEDS: METHYLPREDNISOLONE SOD SUCC 40 MG/ML VIAL IV SCH (09:05)
[2021-11-26] MEDS: RISPERIDONE 0.5MG TABLET PO SCH (09:06)
[2021-11-26] MEDS: PANTOPRAZOLE SODIUM 40 MG/VIAL IV SCH (09:06)
[2021-11-26 09:25] LABS: BG BASE EXCESS 2.8 mmol/L (-2.0-2.0); BG CARBOXYHEMOGLOBIN 0.3 % (0.5-1.5); BG DEOXYHEMOGLOBIN 15.9 % (0.0-5.0); BG FRACTION INSPIRED OXYGEN 80; BG HCO3 ACT 27.8 mmol/L (22.0-26.0); BG METHEMOGLOBIN 0.3 % (0.0-1.5); BG OXYHEMOGLOBIN 83.5 % (94.0-97.0); BG PCO2 44.6 mmHg (35.0-45.0); BG PH 7.412 (7.350-7.450); BG PO2 48.6 mmHg (75.0-100.0); BG SAMPLE SITE RIGHT RADIAL; BG TOTAL HEMOGLOBIN 10.3 g/dL (12.0-18.0); BG VENT MODE VENT - AC
[2021-11-26] MEDS ORDERED: MIDAZOLAM HCL 100 MG in SODIUM CHLORIDE 0.9% 80 ML IV PRN (10:00)
[2021-11-26] MEDS: LORAZEPAM 2MG/ML CPJ IV PRN ×3 (10:09→14:32)
[2021-11-26] MEDS: DEXMEDETOMIDINE 400 MCG in SODIUM CHLORIDE 0.9% 96 ML IV PRN ×4 (12:00→21:48)
[2021-11-26] MEDS: PIPERACILLIN/TAZOBACTAM 3.375 G in DEXTROSE 5% WATER 50 ML IV SCH ×2 (14:53→21:27)
[2021-11-26] MEDS: FENTANYL 2500MCG/250ML PMX 250 ML IV PRN (15:17)
[2021-11-26] MEDS: RISPERIDONE 1MG TABLET PO SCH (16:17)
[2021-11-27] VITALS (87 sets, daily range): BP systolic 52–231; BP diastolic 27–152
[2021-11-27] MEDS ORDERED: FENTANYL 2500MCG/250ML PMX 250 ML IV PRN
[2021-11-27] MEDS: PROPOFOL 10MG/ML 100ML 100 ML IV PRN ×4 (00:11→08:08)
[2021-11-27] MEDS: IPRATROPIUM/ALBUTEROL 0.5-3(2.5)MG/3ML NEB HHN SCH ×6 (00:41→20:38)
[2021-11-27] MEDS: DEXMEDETOMIDINE 400 MCG in SODIUM CHLORIDE 0.9% 96 ML IV PRN ×5 (01:01→11:50)
[2021-11-27 04:58] LABS: BASOPHILS % 0.1 % (0.0-2.0); EOSINOPHILS % 0.5 % (0.0-5.0); HEMOGLOBIN. 8.9 g/dL (14.0-18.0); LYMPHOCYTES % 18.3 % (20.0-50.0); MEAN CORPUSCULAR HEMOGLOBIN 29.7 pg (28.0-32.0); MEAN CORPUSCULAR VOLUME 86.2 fL (80.0-94.0); MEAN PLATELET VOLUME 7.2 fl (7.4-10.4); MONOCYTES % 5.1 % (2.0-8.0); PLATELET 449 x1000/uL (130-400); RED BLOOD CELL COUNT 3.01 mill/uL (4.7-6.1); RED CELL DISTRIBUTION WIDTH 13.9 % (11.6-14.6)
[2021-11-27 05:24] LABS: CHLORIDE 99 mEq/L (98-107)
[2021-11-27] MEDS: CHLORDIAZEPOXIDE 25MG CAPSULE PO SCH ×3 (05:25→21:34)
[2021-11-27] MEDS: DILTIAZEM HCL 90MG TABLET PO SCH ×3 (05:25→21:48)
[2021-11-27] MEDS: LORAZEPAM 2MG/ML CPJ IV PRN ×5 (05:25→20:28)
[2021-11-27] MEDS: PIPERACILLIN/TAZOBACTAM 3.375 G in DEXTROSE 5% WATER 50 ML IV SCH ×3 (05:26→21:33)
[2021-11-27] MEDS: METHYLPREDNISOLONE SOD SUCC 40 MG/ML VIAL IV SCH (08:07)
[2021-11-27] MEDS: RISPERIDONE 1MG TABLET PO SCH ×2 (08:07→16:10)
[2021-11-27] MEDS: PANTOPRAZOLE SODIUM 40 MG/VIAL IV SCH (08:07)
[2021-11-27 08:26] LABS: BG BASE EXCESS 5.1 mmol/L (-2.0-2.0); BG CARBOXYHEMOGLOBIN 0.2 % (0.5-1.5); BG DEOXYHEMOGLOBIN 3.5 % (0.0-5.0); BG FRACTION INSPIRED OXYGEN 75; BG HCO3 ACT 29.9 mmol/L (22.0-26.0); BG METHEMOGLOBIN 0.8 % (0.0-1.5); BG OXYGEN SATURATION 96.5 % (92.0-98.5); BG OXYHEMOGLOBIN 95.5 % (94.0-97.0); BG PCO2 45.3 mmHg (35.0-45.0); BG PH 7.437 (7.350-7.450); BG PO2 94.7 mmHg (75.0-100.0); BG SAMPLE SITE RIGHT RADIAL; BG TOTAL RESPIRATORY RATE 20 b/min; BG VENT MODE VENT - AC
[2021-11-27] MEDS ORDERED: POLYETHYLENE GLYCOL 3350 (17GM) 1 DOSE PACK PO NR (09:00)
[2021-11-27] MEDS ORDERED: BISACODYL 10MG SUPP PR NR (09:00)
[2021-11-27] MEDS ORDERED: PROPOFOL 10MG/ML 100ML 100 ML IV PRN ×2 (09:00)
[2021-11-27] MEDS ORDERED: BISACODYL 10MG SUPP PR PRN (09:00)
[2021-11-27] MEDS: POLYETHYLENE GLYCOL 3350 (17GM) 1 DOSE PACK PO SCH (09:41)
[2021-11-27] MEDS ORDERED: POTASSIUM CHLORIDE 20MEQ TABLET SR PO NR (11:15)
[2021-11-27] MEDS ORDERED: HALOPERIDOL LACTATE 5MG/ML VIAL IM PRN (13:30)
[2021-11-27] MEDS: QUETIAPINE FUMARATE 50MG TABLET PO SCH ×2 (14:35→16:10)
[2021-11-27] MEDS ORDERED: DIPHENHYDRAMINE 50MG/ML VIAL IV NR (16:15)
[2021-11-27] MEDS: DILTIAZEM HCL 5MG/ML 5ML VIAL IV PRN (18:28)
[2021-11-27] MEDS ORDERED: MORPHINE SULFATE 2 MG/ML CPJ (NOT FOR IM USE) IV PRN (20:30)
[2021-11-27] MEDS ORDERED: NALOXONE HCL 0.4MG/ML VIAL IV PRN (20:30)
[2021-11-27] MEDS ORDERED: MORPHINE SULFATE 2 MG/ML CPJ (NOT FOR IM USE) IV NR (20:30)
[2021-11-27] MEDS ORDERED: DILTIAZEM HCL 5MG/ML 5ML VIAL IV NR (21:30)
[2021-11-27] MEDS: DIVALPROEX SODIUM 250MG DR TABLET PO SCH (21:34)
[2021-11-27] MEDS: DILTIAZEM 125MG/125ML PMX 125 ML IV PRN (21:56)
[2021-11-27 23:56] LABS: BG CARBOXYHEMOGLOBIN 0.4 % (0.5-1.5); BG DEOXYHEMOGLOBIN 4.4 % (0.0-5.0); BG FRACTION INSPIRED OXYGEN 32; BG HCO3 ACT 25.2 mmol/L (22.0-26.0); BG METHEMOGLOBIN 0.3 % (0.0-1.5); BG OXYGEN SATURATION 95.6 % (92.0-98.5); BG OXYHEMOGLOBIN 94.9 % (94.0-97.0); BG PCO2 31.1 mmHg (35.0-45.0); BG PH 7.527 (7.350-7.450); BG PO2 74.2 mmHg (75.0-100.0); BG SAMPLE SITE RIGHT RADIAL; BG TOTAL HEMOGLOBIN 12.1 g/dL (12.0-18.0); BG VENT MODE NASAL CANNULA
[2021-11-28] VITALS (92 sets, daily range): BP systolic 50–158; BP diastolic 23–129
[2021-11-28] MEDS ORDERED: ACETAMINOPHEN 650MG SUPP PR PRN (02:00)
[2021-11-28] MEDS: LORAZEPAM 2MG/ML CPJ IV PRN (03:20)
[2021-11-28] MEDS: ACETAMINOPHEN 120MG SUPP PR PRN ×2 (04:05→12:56)
[2021-11-28] MEDS: DILTIAZEM HCL 90MG TABLET PO SCH ×4 (05:18→21:00)
[2021-11-28] MEDS: CHLORDIAZEPOXIDE 25MG CAPSULE PO SCH (05:19)
[2021-11-28] MEDS: IPRATROPIUM/ALBUTEROL 0.5-3(2.5)MG/3ML NEB HHN SCH ×6 (05:22→20:00)
[2021-11-28 06:05] LABS: BASOPHILS % 0.1 % (0.0-2.0); EOSINOPHILS % 0.1 % (0.0-5.0); HEMATOCRIT. 33.2 % (42.0-52.0); HEMOGLOBIN. 11.5 g/dL (14.0-18.0); LYMPHOCYTES % 20.4 % (20.0-50.0); MEAN CORPUSCULAR HEMOGLOBIN 29.8 pg (28.0-32.0); MEAN PLATELET VOLUME 7.4 fl (7.4-10.4); MONOCYTES % 11.5 % (2.0-8.0); NEUTROPHILS % 67.9 % (40.0-76.0); PLATELET 665 x1000/uL (130-400); RED BLOOD CELL COUNT 3.86 mill/uL (4.7-6.1); RED CELL DISTRIBUTION WIDTH 14.4 % (11.6-14.6)
[2021-11-28] MEDS: PIPERACILLIN/TAZOBACTAM 3.375 G in DEXTROSE 5% WATER 50 ML IV SCH ×2 (06:23→13:44)
[2021-11-28] MEDS: DILTIAZEM 125MG/125ML PMX 125 ML IV PRN ×2 (06:24→16:44)
[2021-11-28 06:30] LABS: CHLORIDE 102 mEq/L (98-107)
[2021-11-28] MEDS: PANTOPRAZOLE SODIUM 40 MG/VIAL IV SCH (08:24)
[2021-11-28] MEDS: DIVALPROEX SODIUM 250MG DR TABLET PO SCH ×2 (08:25→20:48)
[2021-11-28] MEDS: POLYETHYLENE GLYCOL 3350 (17GM) 1 DOSE PACK PO SCH (08:25)
[2021-11-28] MEDS: RISPERIDONE 1MG TABLET PO SCH (08:26)
[2021-11-28] MEDS: QUETIAPINE FUMARATE 50MG TABLET PO SCH ×2 (08:32→12:36)
[2021-11-28] MEDS: KCL 20MEQ/100ML PREMIX 100 ML IV SCH ×2 (09:36→11:23)
[2021-11-28] MEDS: ACETAMINOPHEN 325MG TABLET PO PRN (12:33)
[2021-11-28] MEDS ORDERED: CEFTRIAXONE 2 G PREMIX 50 ML IV SCH (20:45)
[2021-11-28] MEDS: CEFTRIAXONE 2 G in DEXTROSE 5% WATER 50 ML IV SCH (22:31)
[2021-11-28] MEDS: DILTIAZEM HCL 5MG/ML 5ML VIAL IV PRN (23:00)
[2021-11-29] VITALS (80 sets, daily range): BP systolic 101–192; BP diastolic 47–131
[2021-11-29] MEDS: DILTIAZEM 125MG/125ML PMX 125 ML IV PRN ×2 (02:30→10:51)
[2021-11-29] MEDS: IPRATROPIUM/ALBUTEROL 0.5-3(2.5)MG/3ML NEB HHN SCH ×3 (04:26→08:00)
[2021-11-29 04:42] LABS: CHLORIDE 105 mEq/L (98-107)
[2021-11-29 04:48] LABS: BASOPHILS % 0.4 % (0.0-2.0); HEMATOCRIT. 34.2 % (42.0-52.0); HEMOGLOBIN. 11.5 g/dL (14.0-18.0); LYMPHOCYTES % 14.1 % (20.0-50.0); MEAN CORPUSCULAR HEMOGLOBIN 29.2 pg (28.0-32.0); MEAN CORPUSCULAR VOLUME 86.7 fL (80.0-94.0); MEAN PLATELET VOLUME 7.5 fl (7.4-10.4); NEUTROPHILS % 72.5 % (40.0-76.0); PLATELET 626 x1000/uL (130-400); RED BLOOD CELL COUNT 3.95 mill/uL (4.7-6.1); RED CELL DISTRIBUTION WIDTH 15.2 % (11.6-14.6)
[2021-11-29 04:50] LABS: CREATINE KINASE 764 IU/L (39-308)
[2021-11-29] MEDS: DILTIAZEM HCL 90MG TABLET PO SCH (05:27)
[2021-11-29] MEDS ORDERED: POTASSIUM CHLORIDE 20MEQ TABLET SR PO NR (07:45)
[2021-11-29] MEDS: PANTOPRAZOLE SODIUM 40 MG/VIAL IV SCH (08:08)
[2021-11-29] MEDS: DIVALPROEX SODIUM 250MG DR TABLET PO SCH ×2 (08:08→20:36)
[2021-11-29] MEDS: POLYETHYLENE GLYCOL 3350 (17GM) 1 DOSE PACK PO SCH (08:09)
[2021-11-29] MEDS ORDERED: IPRATROPIUM BROMIDE (0.02%) 0.5MG/2.5ML NEB HHN PRN (12:30)
[2021-11-29] MEDS: DILTIAZEM HCL 30MG TABLET PO SCH ×2 (13:42→22:35)
[2021-11-29] MEDS: METOPROLOL TARTRATE 100MG TABLET PO SCH (20:37)
[2021-11-29] MEDS: CEFTRIAXONE 2 G in DEXTROSE 5% WATER 50 ML IV SCH (22:36)
[2021-11-30] VITALS (12 sets, daily range): BP systolic 100–142; BP diastolic 59–85
[2021-11-30] MEDS: LORAZEPAM 2MG/ML CPJ IV PRN (01:19)
[2021-11-30] MEDS: DILTIAZEM HCL 30MG TABLET PO SCH (05:47)
[2021-11-30 07:30] LABS: BASOPHILS % 0.5 % (0.0-2.0); EOSINOPHILS % 0.2 % (0.0-5.0); HEMATOCRIT. 33.6 % (42.0-52.0); HEMOGLOBIN. 11.3 g/dL (14.0-18.0); LYMPHOCYTES % 18.4 % (20.0-50.0); MEAN CORPUSCULAR HEMOGLOBIN 29.6 pg (28.0-32.0); MEAN CORPUSCULAR VOLUME 88.2 fL (80.0-94.0); MEAN PLATELET VOLUME 7.7 fl (7.4-10.4); MONOCYTES % 10.5 % (2.0-8.0); NEUTROPHILS % 70.4 % (40.0-76.0); PLATELET 643 x1000/uL (130-400)
[2021-11-30 08:01] LABS: CHLORIDE 107 mEq/L (98-107)
[2021-11-30] MEDS: POLYETHYLENE GLYCOL 3350 (17GM) 1 DOSE PACK PO SCH (08:02)
[2021-11-30] MEDS: DIVALPROEX SODIUM 250MG DR TABLET PO SCH (08:02)
[2021-11-30] MEDS: PANTOPRAZOLE SODIUM 40 MG/VIAL IV SCH (08:02)
[2021-11-30] MEDS: METOPROLOL TARTRATE 100MG TABLET PO SCH (08:03)
[2021-11-30] MEDS ORDERED: POTASSIUM CHLORIDE 20MEQ TABLET SR PO NR (12:30)
[2021-11-30] MEDS: CITALOPRAM HYDROBROMIDE 10MG TABLET PO SCH (15:03)
[2021-11-30] MEDS: ACETAMINOPHEN 325MG TABLET PO PRN (21:28)
[2021-11-30] MEDS: METOPROLOL TARTRATE 50MG TABLET PO SCH (21:28)
[2021-11-30] MEDS: TRAZODONE HCL 50MG TABLET PO SCH (21:28)
[2021-11-30] MEDS: CEFTRIAXONE 2 G in DEXTROSE 5% WATER 50 ML IV SCH (21:28)
[2021-12-01] VITALS (9 sets, daily range): BP systolic 116–138; BP diastolic 70–92
[2021-12-01] MEDS: PANTOPRAZOLE SODIUM 40 MG/VIAL IV SCH (10:15)
[2021-12-01] MEDS: METOPROLOL TARTRATE 50MG TABLET PO SCH ×2 (10:18→21:11)
[2021-12-01] MEDS: ACETAMINOPHEN 325MG TABLET PO PRN (10:18)
[2021-12-01] MEDS: POLYETHYLENE GLYCOL 3350 (17GM) 1 DOSE PACK PO SCH (10:18)
[2021-12-01] MEDS: CITALOPRAM HYDROBROMIDE 10MG TABLET PO SCH (10:18)
[2021-12-01] MEDS ORDERED: POTASSIUM CHLORIDE 20MEQ TABLET SR PO SCH (13:15)
[2021-12-01] MEDS: TRAZODONE HCL 50MG TABLET PO SCH (21:12)
[2021-12-01] MEDS: CEFTRIAXONE 2 G in DEXTROSE 5% WATER 50 ML IV SCH (21:12)
[2021-12-02] VITALS (7 sets, daily range): BP systolic 90–143; BP diastolic 49–76
[2021-12-02] MEDS: CITALOPRAM HYDROBROMIDE 10MG TABLET PO SCH (11:35)
[2021-12-02] MEDS: ACETAMINOPHEN 325MG TABLET PO PRN (11:35)
[2021-12-02] MEDS: PANTOPRAZOLE SODIUM 40 MG/VIAL IV SCH (11:36)
[2021-12-02] MEDS: METOPROLOL TARTRATE 50MG TABLET PO SCH ×2 (11:36→21:40)
[2021-12-02] MEDS: POLYETHYLENE GLYCOL 3350 (17GM) 1 DOSE PACK PO SCH (11:36)
[2021-12-02] MEDS: CEFTRIAXONE 2 G in DEXTROSE 5% WATER 50 ML IV SCH (21:39)
[2021-12-02] MEDS: TRAZODONE HCL 50MG TABLET PO SCH (21:39)
[2021-12-03 00:01] VITALS: BP 96/43
[2021-12-03 04:00] VITALS: BP 91/54
[2021-12-03 08:00] VITALS: BP 137/77
[2021-12-03] MEDS: PANTOPRAZOLE SODIUM 40 MG/VIAL IV SCH (08:54)
[2021-12-03] MEDS: POLYETHYLENE GLYCOL 3350 (17GM) 1 DOSE PACK PO SCH (08:54)
[2021-12-03] MEDS: METOPROLOL TARTRATE 50MG TABLET PO SCH ×2 (08:54→21:46)
[2021-12-03] MEDS: CITALOPRAM HYDROBROMIDE 10MG TABLET PO SCH (10:04)
[2021-12-03 12:00] VITALS: BP 98/58
[2021-12-03 16:00] VITALS: BP 120/63
[2021-12-03 16:06] LABS: BASOPHILS % 0.6 % (0.0-2.0); EOSINOPHILS % 1.2 % (0.0-5.0); HEMATOCRIT. 32.7 % (42.0-52.0); HEMOGLOBIN. 10.9 g/dL (14.0-18.0); LYMPHOCYTES % 19.4 % (20.0-50.0); MEAN CORPUSCULAR HEMOGLOBIN 29.8 pg (28.0-32.0); MEAN CORPUSCULAR VOLUME 89.2 fL (80.0-94.0); MEAN PLATELET VOLUME 8.3 fl (7.4-10.4); MONOCYTES % 7.3 % (2.0-8.0); NEUTROPHILS % 71.5 % (40.0-76.0); PLATELET 421 x1000/uL (130-400); RED BLOOD CELL COUNT 3.67 mill/uL (4.7-6.1); RED CELL DISTRIBUTION WIDTH 15.1 % (11.6-14.6)
[2021-12-03 16:33] LABS: CHLORIDE 102 mEq/L (98-107)
[2021-12-03 20:01] VITALS: BP 126/79
[2021-12-03] MEDS: CEFTRIAXONE 2 G in DEXTROSE 5% WATER 50 ML IV SCH (21:45)
[2021-12-03] MEDS: TRAZODONE HCL 50MG TABLET PO SCH (21:45)
[2021-12-04 00:01] VITALS: BP 108/61
[2021-12-04 04:01] VITALS: BP 97/74
[2021-12-04 08:00] VITALS: BP 102/74
[2021-12-04] MEDS: METOPROLOL TARTRATE 50MG TABLET PO SCH (08:12)
[2021-12-04] MEDS: CITALOPRAM HYDROBROMIDE 10MG TABLET PO SCH (08:16)
[2021-12-04] MEDS: PANTOPRAZOLE SODIUM 40 MG/VIAL IV SCH (08:16)
[2021-12-04] MEDS: POLYETHYLENE GLYCOL 3350 (17GM) 1 DOSE PACK PO SCH (08:17)
[2021-12-04] MEDS ORDERED: ENOXAPARIN 120MG/0.8ML SYR SUBCUT SCH ×2 (11:00)
[2021-12-04 11:48] VITALS: BP 128/76
[2021-12-04] MEDS ORDERED: APIX5TAB MT (12:21)
[2021-12-04] MEDS ORDERED: TRAZ-251 PO (12:21)
[2021-12-04] MEDS ORDERED: CITA10TA16 PO (12:21)
[2021-12-04] MEDS ORDERED: METO100T16 MT (12:21)
[2021-12-04 12:29] VITALS: BP 121/64
== END 2021-12-04 13:30 | disposition home or self-care (01) | DRG 720 ==
LOC: ER 18:45 → MICUSO 21:44 → EDBEDREQTM 21:49 → EDBEDREQ 21:49 → 5EST 11-15 03:00 → MICUNO 11-20 12:15 → 5EST 11-29 22:33
PROVIDERS: ADMIT Internal Medicine; ATTEND Internal Medicine
PROC: 5A1955Z Respiratory Ventilation, Greater than 96 Consecutive Hours (ICD-10-PCS; principal; 2021-11-14)
PROC: 0BH17EZ Insertion of Endotracheal Airway into Trachea, Via Natural or Artificial Opening (ICD-10-PCS; 2021-11-14)
PROC: 02HV33Z Insertion of Infusion Device into Superior Vena Cava, Percutaneous Approach (ICD-10-PCS; 2021-11-19)
PROC: B548ZZA Ultrasonography of Superior Vena Cava, Guidance (ICD-10-PCS; 2021-11-19)
DX: A41.59 Other Gram-negative sepsis (principal); I26.99 Other pulmonary embolism without acute cor pulmonale; J69.0 Pneumonitis due to inhalation of food and vomit; I21.4 Non-ST elevation (NSTEMI) myocardial infarction; J80 Acute respiratory distress syndrome; G92.8 Other toxic encephalopathy; E66.01 Morbid (severe) obesity due to excess calories; T40.601A Poisoning by unspecified narcotics, accidental (unintentional), initial encounter; T42.4X1A Poisoning by benzodiazepines, accidental (unintentional), initial encounter; R74.01 Elevation of levels of liver transaminase levels; Z20.822 Contact with and (suspected) exposure to COVID-19; D64.9 Anemia, unspecified; E87.6 Hypokalemia; F39 Unspecified mood [affective] disorder; F41.1 Generalized anxiety disorder; F43.10 Post-traumatic stress disorder, unspecified; G21.0 Malignant neuroleptic syndrome; I24.8 Other forms of acute ischemic heart disease; I10 Essential (primary) hypertension; I47.1 Supraventricular tachycardia; M62.82 Rhabdomyolysis; Z78.1 Physical restraint status; Z87.891 Personal history of nicotine dependence; Y92.89 Other specified places as the place of occurrence of the external cause; Z68.39 Body mass index [BMI] 39.0-39.9, adult
CPT/HCPCS: 31500; 36415; 36573; 36600; 71045; 71275; 73030; 74018; 76700; 80048; 80053; 80061; 80076; 80202; 80305; 80320; 81003; 82140; 82375; 82550; 82553; 82805; 83605; 83735; 83880; 84100; 84145; 84439; 84443; 84478; 84481; 84484; 85025; 85027; 85379; 86705; 86709; 86803; 87070; 87077; 87186; 87340; 87389; 87426; 92610; 93005; 93306; 93970; 94002; 94003; 94640; 97162; 99291; C1725; C1769; C9113; J0456; J0696; J1200; J1630; J1650; J1940; J2060; J2250; J2270; J2310; J2405; J2543; J2704; J2720; J2920; J3010; J3370; J3480; J3490; J7030; J7050; J7060; J7131; J7608; Q9957; A5200; G0480